=== PATIENT | male | born 1955 | race African-American/Black ===

== ENCOUNTER 2018-12-11 00:37 | Emergency (ER) | payer OTHER ==
[~2018-12-11] VITALS: Ht 167.6 cm; Wt 113.0 kg
[2018-12-11] MEDS ORDERED: ONDANSETRON HCL 4MG/2ML INJ IV STA (01:10)
[2018-12-11] MEDS ORDERED: SODIUM CHLORIDE 0.9% 1,000 ML IV ONE (01:10)
[2018-12-11 01:35] LABS: BASOPHILS % 0.7 % (0.0-2.0); EOSINOPHILS % 1.7 % (0.0-5.0); HEMATOCRIT. 39.2 % (42.0-52.0); HEMOGLOBIN. 13.2 g/dL (14.0-18.0); LYMPHOCYTES % 28.5 % (20.0-50.0); MEAN CORPUSCULAR HEMOGLOBIN 28.5 pg (28.0-32.0); MEAN CORPUSCULAR VOLUME 84.8 fL (80.0-94.0); MEAN PLATELET VOLUME 7.8 fl (7.4-10.4); MONOCYTES % 5.3 % (2.0-8.0); NEUTROPHILS % 63.8 % (40.0-76.0); PLATELET 281 x1000/uL (130-400); RED BLOOD CELL COUNT 4.62 mill/uL (4.7-6.1); RED CELL DISTRIBUTION WIDTH 14.2 % (11.6-14.6)
[2018-12-11 01:39] LABS: CHLORIDE 99 mEq/L (98-107)
[2018-12-11 05:22] VITALS: BP 140/71
== END 2018-12-11 05:24 | disposition home or self-care (01) ==
LOC: ER 01:06
DX: R42 Dizziness and giddiness (principal); F41.9 Anxiety disorder, unspecified; I10 Essential (primary) hypertension; G35 Multiple sclerosis; F32.9 Major depressive disorder, single episode, unspecified
CPT/HCPCS: 36415; 70450; 71045; 80053; 80307; 80329; 83605; 84484; 85025; 93005; 96361; 96374; 99284; J2405; J7030